=== PATIENT | female | born 1980 | race Caucasian/White ===

== ENCOUNTER 2018-05-26 05:39 | Inpatient (IN) | payer BC ==
[2018-05-26] MEDS ORDERED: CEFAZOLIN 2 GM in Premix Bag 1 BAG IVPB SCH ×2 (06:12→07:30)
[2018-05-26] MEDS ORDERED: Docusate 100 MG CAP PO PRN (06:12)
[2018-05-26] MEDS ORDERED: Lactated Ringer's 1,000 ML IV SCH ×2 (06:12→09:30)
[2018-05-26] MEDS ORDERED: Bicitra 30 ML UDCUP PO SCH (06:12)
[2018-05-26] MEDS ORDERED: Ondansetron PF 4 MG/2 ML Vial IVP PRN ×3 (06:12→09:30)
[2018-05-26] MEDS ORDERED: Promethazine HCl 25 MG/ML VIAL IM PRN ×2 (06:12→06:38)
[2018-05-26 06:25] VITALS: BMI 33.3
[2018-05-26 06:27] LABS: Mean Corpuscular HGB CONC 33.6 g/dL (32.0-36.0); Mean Corpuscular Hemoglobin 28.5 pg (27.0-31.0); Mean Platelet Volume 6.8 fL (7.4-10.4); Platelet Count 256 thou/uL (130-400); RBC Distribution Width 16.2 % (11.5-14.5); Red Blood Cell (RBC) Count 3.85 mill/uL (4.20-5.40); White Blood Cell (WBC) Count 10.5 thou/uL (4.8-10.8)
[2018-05-26] MEDS ORDERED: diphenhydrAMINE 50 MG/ML VIAL IVP PRN (06:38)
[2018-05-26] MEDS ORDERED: Naloxone HCl 0.4 mg/ml Vial IV PRN (06:38)
[2018-05-26] MEDS ORDERED: Naloxone HCl 0.4 mg/ml Vial IVP PRN ×2 (06:38)
[2018-05-26] MEDS ORDERED: Eucerin (Mineral Oil/Petrolatum,White) 30 gm Jar TOP PRN (06:38)
[2018-05-26] MEDS ORDERED: Promethazine HCl 25 MG SUPP PR PRN (06:38)
[2018-05-26] MEDS ORDERED: L&D-Morphine 4 MG/ML VIAL SLOW IVP PRN ×2 (06:39→10:15)
[2018-05-26] MEDS ORDERED: Meperidine HCl/PF 25 MG/ML VIAL SLOW IVP PRN ×2 (06:39→10:15)
[2018-05-26] MEDS ORDERED: HYDROmorphone 2 MG/ML VIAL SLOW IVP PRN ×2 (06:39→10:14)
[2018-05-26] MEDS ORDERED: Ondansetron HCl/PF 4 MG/2 ML Vial IVP PRN ×2 (06:39→10:15)
[2018-05-26] MEDS ORDERED: Communication Order-Pharmacy FS SCH (06:45)
[2018-05-26] MEDS ORDERED: Ketorolac Tromethamine 30 MG/ML VIAL IVP SCH ×2 (06:45→10:15)
[2018-05-26] MEDS ORDERED: Ondansetron PF 4 MG/2 ML Vial ONE ×2 (06:53→13:49)
[2018-05-26] MEDS ORDERED: Metoclopramide HCl 10 MG/2 ML VIAL ONE ×2 (06:53→13:49)
[2018-05-26] MEDS ORDERED: Bupivacaine PF 0.5% 30 ML VIAL ONE (06:54)
[2018-05-26] MEDS ORDERED: Bupivacaine 0.75% W/DEXTROSE 8.25% 2 ML AMP ONE (06:54)
[2018-05-26] MEDS ORDERED: Oxytocin 10 UNITS/ML VIAL ONE (06:55)
[2018-05-26] MEDS ORDERED: MORPHINE 5 MG/10 ML PF VIAL ONE (06:59)
[2018-05-26 07:07] LABS: HBSAg Index 0.21 S/CO (0-0.99); Hep B Surf Ag Non-Reactive S/CO (NonReactive)
[2018-05-26 07:14] LABS: Syphilis Antibody Nonreactive (Nonreactive); Syphilis Antibody Index 0.07 S/CO (<1.00 Non-Reactive)
[2018-05-26] MEDS ORDERED: NS / Oxytocin 40 units/1000ml 1,000 ML IV SCH (09:30)
[2018-05-26] MEDS ORDERED: Bisacodyl 10 MG SUPP PR PRN (09:30)
[2018-05-26] MEDS ORDERED: diphenhydrAMINE 25 MG CAP PO PRN (09:30)
[2018-05-26] MEDS ORDERED: Adacel (T-DAP) 0.5 ML SYRINGE IM ONE (09:30)
[2018-05-26] MEDS ORDERED: Lanolin Ointment 7 GM TUBE TOP PRN (09:30)
[2018-05-26] MEDS ORDERED: Zolpidem Tartrate 5 MG TAB PO PRN (09:30)
[2018-05-26] MEDS ORDERED: Acetaminophen 325 MG TAB PO PRN (09:30)
[2018-05-26] MEDS ORDERED: Ketorolac Tromethamine 30 MG/ML VIAL ONE (10:23)
[2018-05-26] MEDS: Ketorolac Tromethamine 30 MG/ML VIAL IVP PRN ×2 (10:24→21:31)
[2018-05-26] MEDS ORDERED: Meperidine HCl/PF 25 MG/ML VIAL ONE (11:02)
[2018-05-26] MEDS: Ampicillin/Sulbactam 3 GM in Sodium Chloride 0.9% 100 ML IVPB SCH ×3 (12:05→23:57)
--- NOTE | 2018-05-26 13:38 | OP ---
DATE OF PROCEDURE: 05/26/2018 SURGEON: Benito Johnson MD RESIDENT SURGEON: Meenu Pereira MD PREOPERATIVE DIAGNOSES: 1. Term intrauterine at 39 and 3/7th weeks. 2. Prior section. POSTOPERATIVE DIAGNOSES: 1. Term intrauterine at 39 and 3/7th weeks. 2. Prior section. PROCEDURE: Repeat low-transverse section. ANESTHESIA: Spinal catheterization. FINDINGS: 1. Minimal scarring and adhesions secondary to previous adhesion prevention measures. 2. Vigorous female , 7 pounds and 6 ounces, Apgars 9 and 10. 3. Normal uterus, tubes, and ovaries. COMPLICATIONS: None. SPECIMENS REMOVED: Cord blood. ESTIMATED BLOOD LOSS: Approximately 500 mL (QBL [id number]). DESCRIPTION OF PROCEDURE: After thorough consent and counseling, Mrs. Roper was taken to the operating room and an adequate level of anesthesia was obtained via spinal catheterization. The patient was prepped and draped in the usual sterile fashion for abdominal surgery. A Boo was placed in the bladder, which was noted to be draining clear urine. Attention was then turned to performing the repeat low-transverse section. A Pfannenstiel incision was made and the old scar was excised. The incision was carried sharply to the fascia, which was also sharply incised. The midline was identified and the rectus muscles were retracted laterally. The abdominal peritoneal cavity was entered with usual safeguards carried out. A retractor was placed and a bladder flap was created on the vesicouterine peritoneum. A bladder blade was then placed. A low-transverse incision was made on the well-developed lower uterine segment. Upon entering the amniotic sac, copious amount of clear amniotic fluid was visualized. The was noted to be vertex presentation in the occiput anterior position still high in the pelvis. Head was delivered and baby was bulb suctioned on the abdomen. Shoulders and body were then delivered in an atraumatic fashion. The cord was doubly clamped and cut. was handed to the Neonatology Team in attendance for the delivery. The infant was a vigorous viable female weighing 7 pounds 6 ounces with Apgars of 9 and 10 obtained at one and five minutes respectively. Cord blood was obtained. The placenta was manually removed from the uterus. The uterus was exteriorized and good tone was noted. The uterine cavity was cleared of any remaining clot and fluid. The low-transverse incision was closed with a running locking ligature of #1 chromic. A second imbricating layer was placed to facilitate strength and hemostasis. The vesicouterine peritoneum was reapproximated to the lower segment with a running ligature of 3-0 Monocryl suture. The incision was carefully inspected and noted to be hemostatic. The posterior cul-de-sac and gutters were cleared of clot and fluid. The uterus, fallopian tubes, and ovaries were normal. Seprafilm was applied to the posterior aspect of the uterus, where there were some filmy adhesions as well as the anterior aspect in the fundus for adhesion prevention. The uterus was returned to the abdomen and good tone and hemostasis was appreciated. The incision was again inspected and noted to be hemostatic. Lap, sponge, and needle counts were correct. The peritoneum was closed with a running ligature of 2-0 Vicryl suture. The rectus muscles were reapproximated in the midline with interrupted ligatures of 2-0 Vicryl and #1 chromic sutures. Good muscle reapproximation was noted. The fascia was then closed with 2 ligatures of 0 Vicryl suture, which were tied in the midline. Good fascial integrity was appreciated. The incision was irrigated with copious amount of warm normal saline. The subcutaneous tissue was closed with interrupted ligatures of 2-0 plain suture. The skin was closed with a subcuticular stitch of 4-0 Monocryl and dressed with Dermabond. A pressure dressing and ice packs were subsequently placed. Lap, sponge, and needle counts were correct x3. Estimated blood loss from the surgical procedure was approximately 500 mL. The patient was taken to the recovery room in good condition. Immediately following surgery, the patient and family were made aware of the surgical procedure and operative findings. Mother and baby doing well postoperatively. Job ID: [id number] [facility]
[2018-05-26] MEDS: Ferrous Sulfate 325 MG TAB PO SCH (16:08)
[2018-05-26] MEDS ORDERED: Meperidine HCl/PF 25 MG/ML VIAL IM PRN (18:45)
[2018-05-26] MEDS ORDERED: HYDROcodone/Acetaminophen 5/325 mg Tablet PO PRN (18:45)
[2018-05-26] MEDS ORDERED: Butorphanol Tartrate 1 MG/ML VIAL SLOW IVP PRN (18:45)
[2018-05-26] MEDS: Docusate Calcium (SURFAK) 240 MG CAP PO SCH ×2 (21:30→21:51)
[2018-05-27] MEDS: Ketorolac Tromethamine 30 MG/ML VIAL IVP PRN (05:24)
[2018-05-27 06:31] LABS: Hemoglobin 8.8 g/dL (12.0-16.0); Mean Corpuscular HGB CONC 33.1 g/dL (32.0-36.0); Mean Corpuscular Hemoglobin 29.5 pg (27.0-31.0); Mean Corpuscular Volume 89.2 fL (78.0-98.0); Mean Platelet Volume 6.6 fL (7.4-10.4); Platelet Count 199 thou/uL (130-400); Red Blood Cell (RBC) Count 2.99 mill/uL (4.20-5.40); White Blood Cell (WBC) Count 10.2 thou/uL (4.8-10.8)
[2018-05-27] MEDS: Prenatal Vitamin 1 TAB PO SCH (10:13)
[2018-05-27] MEDS: Docusate Calcium (SURFAK) 240 MG CAP PO SCH ×2 (10:13→20:58)
[2018-05-27] MEDS: Ferrous Sulfate 325 MG TAB PO SCH ×2 (10:14→17:26)
[2018-05-27] MEDS: Simethicone Chewable 80 MG TAB PO PRN (10:15)
[2018-05-27] MEDS: HYDROcodone/Acetaminophen 5/325 mg Tablet PO PRN ×2 (10:19→19:18)
[2018-05-27] MEDS ORDERED: Sodium Chloride 0.9% 10 ML ONE (13:45)
[2018-05-27] MEDS: Ibuprofen 800 MG TAB PO SCH ×2 (13:48→20:58)
[2018-05-28] MEDS: HYDROcodone/Acetaminophen 5/325 mg Tablet PO PRN ×3 (03:12→10:33)
[2018-05-28] MEDS: Simethicone Chewable 80 MG TAB PO PRN (03:12)
[2018-05-28 03:22] VITALS: TEMP 97.8
[2018-05-28] MEDS: Ibuprofen 800 MG TAB PO SCH (06:03)
[2018-05-28] MEDS: Docusate Calcium (SURFAK) 240 MG CAP PO SCH (08:26)
[2018-05-28] MEDS: Prenatal Vitamin 1 TAB PO SCH (08:26)
[2018-05-28] MEDS: Ferrous Sulfate 325 MG TAB PO SCH (08:26)
[2018-05-28 08:49] VITALS: BP 136/60
== END 2018-05-28 10:35 | disposition home or self-care (01) | DRG 788 ==
LOC: L&D 05:39 → 3SE 12:33
PROVIDERS: ADMIT Obstetrics & Gynecology; ATTEND Obstetrics & Gynecology
PROC: 10D00Z1 Extraction of Products of Conception, Low, Open Approach (ICD-10-PCS; principal; 2018-05-26)
PROC: 3E0P05Z Introduction of Adhesion Barrier into Female Reproductive, Open Approach (ICD-10-PCS; 2018-05-26)
DX: O34.211 Maternal care for low transverse scar from previous cesarean delivery (principal); Z88.1 Allergy status to other antibiotic agents; Z3A.39 39 weeks gestation of pregnancy; Z37.0 Single live birth
CPT/HCPCS: 36415; 51702; 85027; 86780; 86850; 86900; 86901; 87340; J0295; J1885; J2175; J2270; J2310; J2405; J2590; J2765; J3490; J7050; S0020

== ENCOUNTER 2019-08-27 14:26 | Emergency (ER) | payer OTHER ==
[2019-08-27 17:24] LABS: #Lymphocytes 2.4 thou/uL (1.20-3.40); #Monocytes 0.5 thou/uL (0.11-0.59); #Neutrophils 7.5 thou/uL (1.40-6.50); %Basophils 0.2 % (0.0-1.0); %Eosinophils 0.4 % (0.0-10.0); %Lymphocytes 22.7 % (21.0-51.0); %Monocytes 5.2 % (0.0-10.0); %Neutrophils 71.5 % (42.0-75.0); Hemoglobin 12.4 g/dL (12.0-16.0); Mean Corpuscular HGB CONC 33.6 g/dL (32.0-36.0); Mean Corpuscular Hemoglobin 29.5 pg (27.0-31.0); Mean Corpuscular Volume 87.6 fL (78.0-98.0); Mean Platelet Volume 7.2 fL (7.4-10.4); Platelet Count 266 thou/uL (130-400); RBC Distribution Width 11.6 % (11.5-14.5); Red Blood Cell (RBC) Count 4.21 mill/uL (4.20-5.40); White Blood Cell (WBC) Count 10.5 thou/uL (4.8-10.8)
[2019-08-27 17:35] LABS: ALT (SGPT) 14 U/L (8-55); AST (SGOT) 15 U/L (5-34); Albumin 4.2 g/dL (3.5-5.0); Alkaline Phosphatase 46 U/L (40-110); Bilirubin, Direct 0.1 mg/dL (0.1-0.3); Bilirubin, Total 0.3 mg/dL (0.2-1.2); Protein, Total 6.8 g/dL (6.0-8.3)
[2019-08-27 17:42] LABS: ALT (SGPT) 14 U/L (8-55); AST (SGOT) 15 U/L (5-34); Albumin 4.3 g/dL (3.5-5.0); Alkaline Phosphatase 46 U/L (40-110); Anion Gap 13 mmol/L (10-20); BUN (Urea Nitrogen) 9 mg/dL (7.0-18.7); Bilirubin, Total 0.3 mg/dL (0.2-1.2); Calc. Creatinine Clearance 0 mL/min (70-130); Calcium 8.9 mg/dL (7.8-10.44); Carbon Dioxide 21 mmol/L (22-29); Chloride 106 mmol/L (98-107); Estimated GFR-MDRD Greater than 90; Globulin 2.4 g/dL (2.4-3.5); Glucose 81 mg/dL (70-105); Potassium 3.9 mmol/L (3.5-5.1); Protein, Total 6.7 g/dL (6.0-8.3); Sodium 136 mmol/L (136-145)
== END 2019-08-27 16:20 | disposition home or self-care (01) ==
LOC: ER/OP 14:26
DX: Z79.899 Other long term (current) drug therapy (principal); Z3A.01 Less than 8 weeks gestation of pregnancy
CPT/HCPCS: 80053; 84144; 84702; 85025; 96372; J9250